=== PATIENT | female | born 2000 | race Caucasian/White ===

== ENCOUNTER 2022-06-10 16:53 | Emergency (ER) | payer MEDICAID ==
[~2022-06-10] VITALS: Ht 170.2 cm; Wt 63.6 kg
[2022-06-10 17:38] VITALS: BP 140/98
[2022-06-10 19:40] LABS: CLARITY,URINE SLIGHTLY CLOUDY (Clear); COLOR,URINE YELLOW (Yellow); GLUCOSE, URINE NEGATIVE (Neg); KETONES,URINE NEGATIVE (Neg); LEUKOCYTE ESTERASE ,URINE NEGATIVE (Neg); NITRITES, URINE NEGATIVE (Neg); OCCULT BLOOD,URINE NEGATIVE (Neg); PROTEIN,URINE NEGATIVE (Neg); UROBILINOGEN,URINE 0.2 E.U/dL (0.2-1.0)
[2022-06-10 19:45] LABS: UA COLLECTION TYPE CLN CATCH MIDSTREAM
[2022-06-10 19:49] LABS: BACTERIA,URINE 2+ /HPF (Neg); MUCUS STRANDS FEW /LPF (Neg); RBC,URINE 0-2 /HPF (0-2); SQUAMOUS EPITHELIAL CELL,UR FEW /LPF (FEW); WBC,URINE 0-4 /HPF (0-4)
== END 2022-06-10 20:01 | disposition home or self-care (01) ==
LOC: ER 16:54
DX: L73.9 Follicular disorder, unspecified (principal)
CPT/HCPCS: 81001; 99283